=== PATIENT | female | born 1995 | race Hispanic/Latino ===

== ENCOUNTER 2022-09-10 11:24 | Emergency (ER) | payer OTHER ==
[~2022-09-10] VITALS: Ht 165.1 cm; Wt 104.3 kg
[2022-09-10] MEDS ORDERED: CYCLOBENZAPRINE5 MG PO (11:40)
== END 2022-09-10 11:51 | disposition home or self-care (01) ==
LOC: ER 11:30
DX: M79.18 Myalgia, other site (principal); V43.52XA Car driver injured in collision with other type car in traffic accident, initial encounter; Y92.488 Other paved roadways as the place of occurrence of the external cause
CPT/HCPCS: 99282